=== PATIENT | female | born 1995 | race Caucasian/White ===

== ENCOUNTER 2021-05-28 23:26 | Observation (INO) ==
[2021-05-29 03:00] LABS: Amphetamine Screen,Urine Negative ng/mL (Cutoff=1000); Barbiturate Screen,Urine Negative ng/mL (Cutoff=200); Benzodiazepines Screen,Urine Negative ng/mL (Cutoff=200); Cannabinoid Screen,Urine Positive ng/mL (Cutoff = 50); Cocaine Screen,Urine Negative ng/mL (Cutoff= 300); Opiate Screen,Urine Negative ng/mL (Cutoff=300); Phencyclidine Screen,Urine Negative ng/mL (Cutoff=25)
[2021-05-29 03:18] LABS: BUN/Creatinine Ratio 17 (6-26); Blood Urea Nitrogen 11 mg/dL (6-20); Calcium 8.5 mg/dL (8.6-10.3); Carbon Dioxide 20 mEq/L (23-29); Chloride 112 mEq/L (98-107); Creatine Kinase 100 Units/L (30-223); Glucose 90 mg/dL (70-105); Osmolality,Calculated 289 (280-300); Sodium 140 mEq/L (136-145); Troponin I < 0.03 ng/mL (< 0.04); eGFR For African Americans > 60 (> 60); eGFR For Non-African Americans > 60 (> 60)
[2021-05-29 03:25] LABS: Basophils % 0.4 %; Eosinophils # 0.1 K/mcL (0.0-0.6); Eosinophils % 0.6 %; Hemoglobin 12.4 g/dL (11.5-15.4); Immature Granulocytes % 0.3 % (0-4); Lymphocytes # 2.7 K/mcL (0.6-4.6); Lymphocytes % 27.4 %; Mean Corpuscular HGB Conc 33.5 g/dL (31.6-35.5); Mean Corpuscular Hemoglobin 31.9 pg (28.0-33.3); Mean Corpuscular Volume 95.1 fL (83.0-100.0); Mean Platelet Volume 10.6 fL (9.4-12.4); Platelet Count 243 K/mcL (140-400); Red Blood Count 3.89 M/mcL (3.82-4.97); Red Cell Distribution Width 13.1 % (11.5-14.5); Segmented Neutrophils % 61.3 %; White Blood Count 9.7 K/mcL (4.3-11.1)
[2021-05-29] MEDS ORDERED: Aspirin 81 MG TAB.CHEW PO ONE (04:48)
[2021-05-29] MEDS ORDERED: Melatonin 3 MG TABLET PO PRN (05:43)
[2021-05-29] MEDS ORDERED: Naloxone 0.4 MG/ML INJ IVP PRN (05:43)
[2021-05-29] MEDS ORDERED: Perflutren Lipid Microsphere 1.3 ML in 0.9 % Sodium Chloride 8.7 ML IVP PRN (05:47)
[2021-05-29 06:41] LABS: Influenza A PCR Negative (Negative); Influenza B PCR Negative (Negative); Resp. Syncytial Virus PCR Negative (Negative); SARS-CoV-2 by PCR (In House) Negative (Negative)
[2021-05-29 06:49] LABS: Magnesium 1.9 mg/dL (1.6-2.6)
[2021-05-29 06:51] LABS: Troponin I < 0.03 ng/mL (< 0.04)
[2021-05-29 07:05] LABS: Thyroid Stimulating Hormone 1.763 mcIU/mL (0.340-5.600)
[2021-05-29] MEDS: carvediloL 6.25 MG TABLET PO SCH ×2 (09:35→18:30)
[2021-05-29] MEDS ORDERED: Acetaminophen 325 MG TABLET PO PRN (15:29)
[2021-05-29] MEDS ORDERED: Naloxone 0.4 MG/ML INJ ONE (15:34)
[2021-05-29 19:44] LABS: Amphetamine Screen,Urine Negative ng/mL (Cutoff=1000); Barbiturate Screen,Urine Negative ng/mL (Cutoff=200); Benzodiazepines Screen,Urine Negative ng/mL (Cutoff=200); Cannabinoid Screen,Urine Positive ng/mL (Cutoff = 50); Cocaine Screen,Urine Negative ng/mL (Cutoff= 300); Opiate Screen,Urine Negative ng/mL (Cutoff=300); Phencyclidine Screen,Urine Negative ng/mL (Cutoff=25)
[2021-05-29] MEDS: *HR* Heparin 5,000 UNIT/ML VIAL SQ SCH (20:36)
[2021-05-30] MEDS: *HR* Heparin 5,000 UNIT/ML VIAL SQ SCH (04:23)
[2021-05-30] MEDS: carvediloL 6.25 MG TABLET PO SCH (08:43)
[2021-05-30] MEDS ORDERED: Aspirin 81 MG TAB.CHEW PO SCH (09:00)
[2021-05-30 11:45] VITALS: BP 155/57; PULSE 68; TEMP 98.5; O2SAT 98
== END 2021-05-30 14:54 | disposition short-term general hospital (02) ==
LOC: 3BNU 23:26 → EMEROOARM 23:26 → SUATTDRO 05-29 05:07 → 3BNU 05-29 06:40
PROVIDERS: ADMIT Internal Medicine; ATTEND Family Medicine